=== PATIENT | female | born 1945 | race Caucasian/White ===

== ENCOUNTER 2020-08-10 06:58 | Inpatient (IN) ==
[2020-08-01 17:09] LABS: Appearance,Urine HAZY (Clear); Bilirubin,Urine Negative (Negative); Color,Urine YELLOW; Culture Indicated,Urine No; Glucose,Urine (UA) Negative (Negative); Ketones,Urine Negative (Negative); Leukocyte Esterase,Urine 500 /ug (Negative); Mucus,Urine FEW /hpf; Nitrate,Urine Negative (Negative); Protein,Urine Negative (Negative); Specific Gravity,Urine 1.023 (1.000-1.035); Urine Blood Negative (Negative); Urine RBC 0 /hpf (0-1); Urine Squamous Epithelial Cell 10 /hpf (0-4); Urine WBC 37 /hpf (0-4); Urobilinogen,Urine Negative
[2020-08-01 19:16] LABS: Prothrombin Time 13.1 sec (11.9-14.5)
[2020-08-01 20:11] LABS: Basophils # (Auto) 0.05 K/mcL (0.00-0.20); Basophils % (Auto) 0.7 % (0.0-2.0); Eosinophils # (Auto) 0.14 K/mcL (0.00-0.70); Eosinophils % (Auto) 2.1 % (0.0-7.0); Hematocrit 46.2 % (36.0-48.0); Hemoglobin 14.8 g/dL (12.0-15.0); Lymphocytes # (Auto) 2.36 K/mcL (1.50-4.80); Lymphocytes % (Auto) 34.7 % (15.0-49.0); Mean Cell Volume 97.1 fL (80.0-100.0); Monocytes # (Auto) 0.54 K/mcL (0.10-0.90); Monocytes % (Auto) 7.9 % (1.0-12.0); Neutrophils % (Auto) 54.6 % (38.0-78.0); Platelet Count 252 K/mcL (140-440); RBC 4.76 M/mcL (4.00-5.20); Red Cell Distribution Width 12.2 % (11.5-14.5); WBC 6.8 K/mcL (4.5-11.0)
[2020-08-01 20:38] LABS: Blood Urea Nitrogen 16 mg/dL (8-23); Carbon Dioxide 26 mmol/L (22-30); Chloride 103 mmol/L (96-108); Glomerular Filtration Rate 62; Glucose 92 mg/dL (70-105)
[~2020-08-10 06:58] MED LIST: CELECOXIB 200 MG CAPSULE PO SCH; PREGABALIN 75 MG CAPSULE PO SCH; ceFAZolin 2 GM in DEXTROSE 5% IN WATER 50 ML IV SCH; oxyCODONE 10 MG TAB.ER.12H PO SCH
[2020-08-10] MEDS ORDERED: IPRATROPIUM/ALBUTEROL 3 ML AMPUL.NEB NEB PRN (07:00)
[2020-08-10] MEDS ORDERED: SCOPOLAMINE 1 PATCH PATCH TOPICAL PRN (07:00)
[2020-08-10] MEDS ORDERED: GENTAMICIN SULFATE 800 MG/20 ML VIAL IR ONE (09:13)
[2020-08-10] MEDS ORDERED: DEXAMETHASONE 10 MG/ML VIAL ONE (09:45)
[2020-08-10] MEDS ORDERED: SUCCINYLCHOLINE 20 MG/ML ML IV ONE (09:45)
[2020-08-10] MEDS ORDERED: PROPOFOL 200 MG/20 ML VIAL IV ONE (09:45)
[2020-08-10] MEDS ORDERED: METOPROLOL TARTRATE 5 MG/5 ML VIAL IV ONE (09:45)
[2020-08-10] MEDS ORDERED: KETAMINE HCL 50 MG/ML ML ONE (09:45)
[2020-08-10] MEDS ORDERED: LIDOCAINE HCL/PF 100 MG/5 ML SYRINGE IV ONE (09:45)
[2020-08-10] MEDS ORDERED: GLYCOPYRROLATE 0.2 MG/ML VIAL IV ONE (09:45)
[2020-08-10] MEDS ORDERED: PHENYLEPHRINE 10 MG/ML VIAL ONE (09:45)
[2020-08-10] MEDS ORDERED: ONDANSETRON 4 MG/2 ML VIAL ONE (09:45)
[2020-08-10] MEDS ORDERED: fentaNYL 100 MCG/2 ML VIAL IV ONE (09:45)
--- NOTE | 2020-08-10 11:06 | General Surgery Procedure Note ---
Date of procedure: Note initiated : 08/10/20 at 11:05 am Service Date, if different from initiated Date: [] Pre-op diagnosis: right shoulder osteoarthritis, rtc tear, biceps tendonitis Post-op diagnosis: same Procedure: right reverse total shoulder arthroplasty, biceps tenodesis Findings: oa, rtc tear, biceps tear Anesthesia: AVILA Surgeon: Ancelmo Tinajero Cut Filer: Inocencio Houston Estimated blood loss: 150 Pathology: none sent Condition: stable Disposition: PACU
--- NOTE | 2020-08-10 11:08 | Discharge Plan ---
Discharge Instructions - [facility] Patient Instructions Total Shoulder Protocol: Leave immobilizer in place except for bathing and ROM. Abduction pillow. Continue to wear sling until seen by physician. Codman Pendulum : These exercises use momentum produced by your body to move your shoulder joint. Bend your knees and shift your weight to your front leg, then back, allowing your arm to swing in the same directions. Using the same technique, alternately shift your weight between your right and left legs, allowing your arm to swing from side to side. These exercises are also performed in counterclockwise and clockwise circular motions. Typically these exercises are performed several times per day, for a set number repetitions or minutes, such as 20 times in a row or 5 minutes at a time. Dressing Care: May shower in 2 days Discharge Plan Patient/Caregiver Discharge Instructions Prescriptions: No Action multivitamin tablet 1 tab-cap PO QDAY RF: 0 losartan 50 mg Tablet 50 mg PO QDAY RF: 0 tenctxh-hkhhdymij-tbqzyr-zinc Tablet 1 tab PO DAILY RF: 0 Follow Up Plan Follow up with: Inocencio Houston PA-C [Physician] - 08/27/20 8:00 am Patient Disposition: Home, Self-Care Rehab Potential: Good I certify that the patient requires SNF services: No Overall status at discharge: patient is progressing back to baseline Discharge Orders: Discharge Order (Routine); Ordered 08/11/20 Ordered By: Ancelmo Tinajero Discharge Comment: cc: right shoulder osteoarthritis / rtc tear
[2020-08-10] MEDS ORDERED: ONDANSETRON 4 MG ODT TABLET SL PRN (11:09)
[2020-08-10] MEDS ORDERED: TRANEXAMIC ACID 1,000 MG/10 ML VIAL IV SCH (11:09)
[2020-08-10] MEDS ORDERED: KETOROLAC 15 MG/ML VIAL IV PRN (11:09)
[2020-08-10] MEDS ORDERED: BENZOCAINE/MENTHOL 1 LOZENGE PO PRN (11:09)
[2020-08-10] MEDS ORDERED: METHOCARBAMOL 750 MG TABLET PO PRN (11:09)
[2020-08-10] MEDS ORDERED: FLEETS ADULT ENEMA PR PRN (11:09)
[2020-08-10] MEDS ORDERED: MAGNESIUM HYDROXIDE 30 ML ORAL.SUSP PO PRN (11:09)
[2020-08-10] MEDS ORDERED: POLYETHYLENE GLYCOL 3350 17 GM PACKET PO PRN (11:09)
[2020-08-10] MEDS ORDERED: BISACODYL 10 MG SUPP.RECT PR PRN (11:09)
[2020-08-10] MEDS ORDERED: ONDANSETRON 4 MG/2 ML VIAL IV PRN (11:09)
[2020-08-10] MEDS ORDERED: morphine 4 MG/ML VIAL IV PRN (11:09)
[2020-08-10] MEDS: LACTATED RINGERS 1,000 ML IV SCH ×2 (11:48→17:33)
--- NOTE | 2020-08-10 12:12 | XRay Report ---
INDICATION: Post-OP Total Shoulder TECHNIQUE: AP and axillary views of the right shoulder COMPARISON: Previous MRI scan dated 06/28/2020 FINDINGS: Status post right reverse shoulder arthroplasty. Alignment is anatomic IMPRESSION: Right reverse shoulder arthroplasty Interpreted and Authenticated by: Ancelmo Mendoza 08/10/20
[2020-08-10] MEDS: 0.9 % SODIUM CHLORIDE 10 ML SYRINGE IV SCH ×2 (12:17→20:15)
--- NOTE | 2020-08-10 15:57 | Operative Note ---
DATE OF OPERATION: 08/10/2020 PREOPERATIVE DIAGNOSES: 1. Right shoulder irreparable rotator cuff tear. 2. Right shoulder osteoarthritis. 3. Right shoulder proximal biceps tendinitis. POSTOPERATIVE DIAGNOSES: 1. Right shoulder irreparable rotator cuff tear. 2. Right shoulder osteoarthritis. 3. Right shoulder proximal biceps tendinitis. PROCEDURE: 1. Right reverse total shoulder arthroplasty. 2. Right shoulder soft tissue biceps tenodesis SURGEON: Wilian Tinajero M.D. PROCESS AUTOMATION ENGINEER SURGEON: Kiet Houston PA-C. The PA's assistance was required for the safe and efficient completion of the entire case. This providers expertise and technical skill were required throughout the case. The PA assisted with preoperative coordination, intraoperative retraction, wound closure, dressing and splint application, as well as postoperative documentation and care coordination. : ANESTHESIA: General. ESTIMATED BLOOD LOSS: 150 mL. COMPLICATIONS: None noted. SPECIMENS REMOVED: None. DRAINS: None. IMPLANTS: DePuy Delta Xtend cementless metaglene, CUETO coated; DePuy Delta Xtend locking metaglene screw 4.5 x 30 times 2; DePuy nonlocking metaglene screw 4.5 x 18 times 2; DePuy Delta Xtend lateralized glenosphere +0, 38 mm standard; DePuy [employer] Unite Porocoat standard stem size 12; DePuy Delta Xtend modular eccentric epiphysis CUETO coated cementless size 1, right; DePuy Delta Xtend humeral polyethylene cup standard 38, +3. INDICATIONS: The patient has had a longstanding history of worsening pain in the shoulder that has failed conservative treatment. Radiographs have confirmed advanced degenerative joint disease and a failed rotator cuff. After a long discussion about treatment options, the patient elected to proceed with a reverse total shoulder arthroplasty. The risks and benefits were discussed with the patient in detail including, but not limited to, the risks of anesthesia, problems with the heart or lungs related to anesthesia, infection, compromise or injury to the nerves and blood vessels, deep venous thrombosis, pulmonary embolism, pneumonia, continued pain after surgery, worsening pain or symptoms after surgery, swelling, loss of motion, instability, fracture, arm length discrepancy, and need for repeat surgery. DESCRIPTION OF PROCEDURE: The patient was seen in the preanesthesia waiting room where all questions were answered and the correct side and site were identified and marked. The patient was transferred to the operating room and administered the anesthetic and given preoperative antibiotics. A time-out was then called. The patient was placed in the modified beach chair position with all prominences well padded. The extremity was prepped and draped from the fingers up to the neck. A standard deltopectoral skin incision was created. Dissection was carried down to the deltopectoral groove and the cephalic vein was isolated medially and retracted laterally with the deltoid. Retractors were placed and the coracobrachialis was split up to the coracoacromial ligament allowing retraction of the conjoined tendon. We split the subscapularis 1 cm medial to the bicipital groove and extended the split into the rotator interval. This was tagged for later repair. The supraspinatus and infraspinatus had been previously torn and retracted. The biceps was cut and a soft tissue tenodesis was performed into the anterior shoulder with #2 FiberWire. A capsular release was performed in a posterior subperiosteal direction along the humerus. The humeral head was then dislocated. We established intramedullary access and hand reamed up to get good cortical chatter with the [employer] Delta XTEND reverse total shoulder instrumentation. We then used the intramedullary guide and set to about 5 degrees of retroversion. The proximal humerus cut was performed and osteophytes were removed. A metal protector plate was then placed. Attention was then turned to the glenoid. Retractors were placed for optimal visualization and the labrum was excised in its entirety. A centralizing Steinmann pin was placed just into the posterior inferior quadrant in a standard fashion. We reamed over the pin to remove all the cartilage and get to a good base for the prosthesis. The drill was then placed over for the central peg. A cementless Metaglene was then impacted into place. We then drilled, measured, and placed the four screws starting inferior, then superior, then anterior, and finally posterior. The superior locking screw was lined up at the base of the coracoid process. We then impacted the head onto the Metaglene and tightened down in a standard fashion. Attention was then turned back to the humerus. Proximal reaming was performed off the intramedullary guide into the humeral head, using the eccentric guide to allow best coverage. We again set version and broached up to a stable implant. Trials were placed and good tension, motion, and stability were obtained at this point. Trials were removed and the final press fit femoral prosthesis was impacted into place with measured version. The final polyethylene was placed and the shoulder was reduced and again checked for motion, tension, and stability. We irrigated with 3 liters of antibiotic saline and closed the subscapularis with # 2 FiberWire. We irrigated again and closed the deltopectoral interval with several # 0 Vicryl figure of eight sutures. The subcutaneous layer was closed with 2-0 Vicryl and the skin was closed with Dermabond. A sterile pressure dressing was applied and the patient was placed into an abduction sling. All needle and sponge counts were correct. The patient was transferred to the recovery room in stable condition. JURGEN:austin Job ID: [id number] Doc ID: [id number] Wilian Tinajero MD
[2020-08-10] MEDS: ceFAZolin 1 GM VIAL IV SCH (17:34)
[2020-08-10] MEDS: HYDROcodone/APAP 10/325MG TABLET PO PRN (17:51)
[2020-08-10] MEDS: DOCUSATE SODIUM 100 MG CAPSULE PO SCH (20:10)
[2020-08-10] MEDS ORDERED: SENNOSIDES 1 TABLET PO SCH (21:00)
[2020-08-11] MEDS: ceFAZolin 1 GM VIAL IV SCH (00:45)
[2020-08-11] MEDS: LACTATED RINGERS 1,000 ML IV SCH ×2 (01:38→10:26)
[2020-08-11] MEDS: 0.9 % SODIUM CHLORIDE 10 ML SYRINGE IV SCH (05:03)
[2020-08-11 07:12] LABS: Hematocrit 38.8 % (36.0-48.0); Hemoglobin 12.5 g/dL (12.0-15.0)
[2020-08-11] MEDS: HYDROcodone/APAP 10/325MG TABLET PO PRN (08:16)
[2020-08-11] MEDS: DOCUSATE SODIUM 100 MG CAPSULE PO SCH (08:16)
--- NOTE | 2020-08-11 08:59 | General Surgery Progress Note ---
SUBJECTIVE Subjective Patient information: Note initiated : 08/11/20 at 8:58 am Service Date, if different from initiated Date: [] Patient: Marcia Feliz 74 y/o F admitted on 08/10/20 for Right Reverse Total Shoulder Arthroplasty and Open. Chief Complaint: [pod 1 s/p right reverse tsa] Constitutional Vitals: Vital Signs Temp Pulse Resp BP Pulse Ox 97.4 F 64 16 106/64 96 08/11/20 07:44 08/11/20 07:44 08/11/20 07:44 08/11/20 07:44 08/11/20 07:44 Period Temp Pulse Resp BP Sys/Alfaro Pulse Ox Last 24 Hr 97.0 F-98.3 F 49-86 11-18 106-149/43-73 91-98 Intake and Output 08/10/20 08/11/20 08/11/20 21:59 05:59 13:59 Intake Total 720 1989 Output Total 1100 500 Balance 720 890 -500 Weight 231 lb Intake & Output: Intake & Output 08/10/20 08/11/20 08/11/20 21:59 05:59 13:59 Intake Total 720 1989 Output Total 1100 500 Balance 720 890 -500 Weight 231 lb Intake: IV 1000 Lactated Ringers 1,000 ml @ 125 1000 mls/hr IV .Q8H [facility] Rx#: [id number] Oral 720 990 Output: Void Amount 1100 500 Other: Meal Dinner Percent of Meal Consumed 25% Feeding Ability Independent Urine Appearance Clear Clear Urine Color Bright Yellow Dark Yellow Urine Odor Normal # Voids 1 Extremities Exam Extremities exam: Present normal capillary refill, normal inspection, tenderness, Foot pink and warm and neurovascular intact; Absent calf tenderness A/P Narrative A/P Narrative: pod 1 s/p right reverse total shoulder nwb pain control d/c planning - home today Time Spent With Patient Time: Total time spent is greater than 50% in coordination of care (as documented) at patient's floor/unit and/or counseling patient:
[2020-08-11] MEDS ORDERED: LOSARTAN 50 MG TABLET PO SCH (09:00)
== END 2020-08-11 10:50 | disposition home or self-care (01) | DRG 483 ==
LOC: MEDSUR 06:58
PROVIDERS: ADMIT Orthopaedic Surgery Sports Medicine; ATTEND Orthopaedic Surgery Sports Medicine